=== PATIENT | female | born 1990 | race American Indian/Alaskan Native ===

== ENCOUNTER 2021-06-04 05:00 | Emergency (ER) | payer SELFPAY ==
[2021-06-04] MEDS ORDERED: SODIUM CHLORIDE 0.9% 1000 ML 1,000 ML IV ONE (06:00)
--- NOTE | 2021-06-04 06:51 | Emergency Department Report ---
ED General Adult HPI - General Chief complaint: Abdominal Pain Stated complaint: ABD PAIN/EMESIS PUI?: No Time Seen by Provider: 06/04/21 06:11 Source: patient, RN notes reviewed Mode of arrival: Ambulatory Limitations: No Limitations - History of Present Illness Initial comments: During the history and physical examination, I am chaperoned by nurse Judd Smith. The patient is a 31-year-old female. She is not known to myself previously. The patient reports that she had liposuction and abdominal surgery, cosmetically, April 29, 2021, [place], with cosmetics. The patient has not followed up with a local primary care doctor or surgeon. She presents to the ER with 3 days of abdominal cramping, nonbloody, nonbilious emesis. This is intermittent. Does not radiate anywhere. Does not have exacerbating or relieving factors. Patient denies headache, neck pain, chest pain, shortness of breath, urinary symptoms, extremity weakness or numbness. She states that she is not . She has not received her Covid vaccination. She states that she called up her surgeon in [place], and nobody answered her call. She also states that she was not discharged with outpatient follow-up to the best of her recollection. -: Gradual, days(s) Location: abdomen Quality: aching Consistency: intermittent Improves with: none Worsens with: none - Related Data Previous Rx's Medication Instructions Recorded Last Taken Type Acetaminophen [Non-Aspirin Extra 500 mg PO Q6HR PRN #30 tablet 06/04/21 Unknown Rx Strength] Famotidine [Pepcid] 20 mg PO BID #10 tablet 06/04/21 Unknown Rx Metoclopramide [Reglan] 10 mg PO QID PRN #30 tablet 06/04/21 Unknown Rx Allergies Allergy/AdvReac Type Severity Reaction Status Date / Time No Known Allergies Allergy Unverified 06/04/21 05:59 ED Review of Systems ROS: Stated complaint: ABD PAIN/EMESIS Other details as noted in HPI Comment: All other systems reviewed and negative Gastrointestinal: abdominal pain, nausea, vomiting, constipation ED Past Medical Hx - Past Medical History Previous Medical History?: No - Surgical History Past Surgical History?: No - Social History Smoking Status: Never Smoker - Medications Home Medications: Home Medications Medication Instructions Recorded Confirmed Last Taken Type Acetaminophen [Non-Aspirin Extra 500 mg PO Q6HR PRN #30 tablet 06/04/21 Unknown Rx Strength] Famotidine [Pepcid] 20 mg PO BID #10 tablet 06/04/21 Unknown Rx Metoclopramide [Reglan] 10 mg PO QID PRN #30 tablet 06/04/21 Unknown Rx ED Physical Exam - General Limitations: No Limitations General appearance: alert, in no apparent distress - Head Head exam: Present: atraumatic, normocephalic - Eye Eye exam: Present: normal appearance, EOMI. Absent: nystagmus - ENT ENT exam: Present: normal exam, normal orophraynx, mucous membranes moist, normal external ear exam - Neck Neck exam: Present: normal inspection, full ROM. Absent: tenderness, meningismus - Respiratory Respiratory exam: Present: normal lung sounds bilaterally. Absent: respiratory distress, wheezes, rales, rhonchi, stridor, decreased breath sounds - Cardiovascular Cardiovascular Exam: Present: regular rate, normal rhythm, normal heart sounds. Absent: bradycardia, tachycardia, irregular rhythm, systolic murmur, diastolic murmur, rubs, gallop - GI/Abdominal GI/Abdominal exam: Present: soft, normal bowel sounds. Absent: distended, tenderness, guarding, rebound, rigid, pulsatile mass - Extremities Exam Extremities exam: Present: normal inspection, full ROM, other (2+ pulses noted in the bilateral upper and lower extremities. There is no palpable cord. negative Homans sign. Muscular compartments are soft. The pelvis is stable.). Absent: pedal edema, calf tenderness - Back Exam Back exam: Present: normal inspection, full ROM. Absent: tenderness, CVA tenderness (R), CVA tenderness (L), paraspinal tenderness, vertebral tenderness - Neurological Exam Neurological exam: Present: alert, oriented X3, normal gait, other (No facial droop. Tongue midline. Extraocular movements intact bilaterally. Facial sensation intact to light touch in V1, V2, V3 distribution bilaterally. 5 and a 5 strength in 4 extremities. Sensation intact to light touch in 4 extremities .). Absent: motor sensory deficit - Psychiatric Psychiatric exam: Present: normal affect, normal mood - Skin Skin exam: Present: warm, dry, intact, normal color. Absent: rash ED Course Vital Signs 06/04/21 06/04/21 06/04/21 05:06 08:48 08:51 Temperature 98.7 F 98.2 F Pulse Rate 64 74 Respiratory 16 16 16 Rate Blood Pressure 112/61 Blood Pressure 130/82 [Left] O2 Sat by Pulse 100 98 99 Oximetry ED Medical Decision Making - Lab Data Result diagrams: 06/04/21 07:22 06/04/21 07:22 Vital Signs 06/04/21 06/04/21 06/04/21 05:06 08:48 08:51 Temperature 98.7 F 98.2 F Pulse Rate 64 74 Respiratory 16 16 16 Rate Blood Pressure 112/61 Blood Pressure 130/82 [Left] O2 Sat by Pulse 100 98 99 Oximetry Lab Results 06/04/21 06/04/21 06/04/21 Range/Units 07:22 07:22 07:22 WBC 7.7 (4.5-11.0) K/mm3 RBC 3.87 (3.65-5.03) M/mm3 Hgb 11.5 (10.1-14.3) gm/dl Hct 35.0 (30.3-42.9) % MCV 90 (79-97) fl MCH 30 (28-32) pg MCHC 33 (30-34) % RDW 14.4 (13.2-15.2) % Plt Count 304 (140-440) K/mm3 Sodium 136 L (137-145) mmol/L Potassium 4.2 (3.6-5.0) mmol/L Chloride 107.3 H (98-107) mmol/L Carbon Dioxide 20 L (22-30) mmol/L Anion Gap 13 mmol/L BUN 8 (7-17) mg/dL Creatinine 0.7 (0.6-1.2) mg/dL Estimated GFR > 60 ml/min BUN/Creatinine Ratio 11 % Glucose 85 (65-100) mg/dL Calcium 8.5 (8.4-10.2) mg/dL Magnesium 2.00 (1.7-2.3) mg/dL Total Bilirubin 0.20 (0.1-1.2) mg/dL AST 22 (5-40) units/L ALT 13 (7-56) units/L Alkaline Phosphatase 68 (35-129) units/L Total Creatine Kinase 93 (30-135) units/L Total Protein 6.8 (6.3-8.2) g/dL Albumin 3.6 L (3.9-5) g/dL Albumin/Globulin Ratio 1.1 % HCG, Quant < 2 (0-4) mIU/mL - Radiology Data Radiology results: pending - Medical Decision Making Differential diagnosis, including but not limited to: Surgical complication, obstruction, colitis, diverticulitis, perforation, cannabinoid hyperemesis syndrome, cyclic vomiting syndrome, , dehydration Assessment and plan: 31-year-old female, who is afebrile, with reassuring vital signs, who is clinically sober, awake, alert, oriented, exhibiting decision- making capacity, with a complaint of abdominal cramping, nausea and vomiting. Physical exam is benign and unremarkable. I recommended laboratory studies, urinalysis, and CT scan of the abdomen pelvis for diagnostic evaluation. The patient initially did not want to have this done, and reported that she would sign out AGAINST MEDICAL ADVICE. Risks of leaving, including , disability, paralysis, loss of quality of life were discussed with the patient, while nurse Judd Smith was present. The patient subsequently stated that she would stay for diagnostic evaluation. Shortly thereafter, she eloped/left without telling myself. Patient will therefore be discharged AGAINST MEDICAL ADVICE. I will have nursing team contact patient, to encourage her to come back to the emergency room, to complete her medical evaluation. Critical care attestation.: If time is entered above; I have spent that time in minutes in the direct care of this critically ill patient, excluding procedure time. ED Disposition Clinical Impression: Acute abdominal pain, History of nausea and vomiting Disposition: DC-07 LEFT AGAINST MED ADVICE Is pt being admited?: No Does the pt Need Aspirin: No Condition: Undetermined Instructions: Abdominal Pain (ED) Additional Instructions: As we discussed, you have left the hospital/emergency room AGAINST MEDICAL ADVICE. By leaving, you risked , disability, paralysis, permanent loss of quality of life. The ER is open 24 hours a day, 7 days a week. It never closes. Please return to the emergency room right away if and when you change your mind. If you decide not to return to the emergency room, please follow-up with the listed physician referrals as soon as possible. Referrals: LISET SIERRA MD [Primary Care Provider] - 3-5 Days LIZZY VILA MD [Staff Physician] - 3-5 Days JOSE R CORDERO MD [Staff Physician] - 3-5 Days
[2021-06-04] MEDS ORDERED: ONDANSETRON 4 MG/2 ML INJ IV ONE (07:00)
[2021-06-04] MEDS ORDERED: ACETAMINOPHEN 325 MG/10.15 ML ORAL LIQD UNIT DOSE PO ONE (07:00)
[2021-06-04 07:38] LABS: Hemoglobin 11.5 gm/dl (10.1-14.3); Mean Corpuscular HGB Conc 33 % (30-34); Mean Corpuscular Volume 90 fl (79-97); Red Blood Count 3.87 M/mm3 (3.65-5.03); Red Cell Distribution Width 14.4 % (13.2-15.2)
[2021-06-04 07:45] LABS: Platelet Count 304 K/mm3 (140-440)
[2021-06-04 08:01] LABS: Alanine Aminotransferase 13 units/L (7-56); Albumin 3.6 g/dL (3.9-5); Blood Urea Nitrogen 8 mg/dL (7-17); Calcium 8.5 mg/dL (8.4-10.2); Hemolysis Index 84
[2021-06-04 08:04] LABS: BUN/Creatinine Ratio 11
[2021-06-04 08:53] VITALS: BP 130/82
== END 2021-06-04 07:20 | disposition left against medical advice (07) ==
LOC: ED 05:00
DX: R10.9 Unspecified abdominal pain (principal); Z87.898 Personal history of other specified conditions; Z79.899 Other long term (current) drug therapy
CPT/HCPCS: 36415; 80053; 82550; 83735; 84702; 85027; 96361; 96374; 99283; J2405